=== PATIENT | female | born 1965 | race African-American/Black ===

== ENCOUNTER 2016-10-27 17:02 | Emergency (ER) | payer SELFPAY ==
[~2016-10-27] VITALS: Ht 157.5 cm; Wt 90.0 kg
[~2016-10-27 17:02] MED LIST: 1-ME1LIQ PO; GLUCTAB PO; LISI-360 PO
[2016-10-27 17:03] VITALS: BP 154/99; PULSE 84; RESP 20; TEMP 97.8; O2SAT 97
--- NOTE | 2016-10-27 19:35 | PD ---
HPI Chief Complaint: Cold / Flu Symptoms Time Seen by Provider: 19:33 Travel History International Travel<30 days: No Contact w/Intl Traveler<30days: No Traveled to known affect area: No History of Present Illness HPI 51-year-old black female presents to emergency department with 3-4 day history of subjective fever and chills, myalgias, arthralgias, runny nose, cough, sneezing and general malaise. She denies any ear pain or sore throat. No shortness of breath or wheezing. No nausea vomiting. No abdominal pain or diarrhea. No dysuria or frequency. Lids are moderate. No alleviating factors. History Past Medical Histgory Narrative Medical Diabetes, hypertension Tetanus Vaccination: < 5 Years Hx Cancer: No Past Surgical History Narrative Surgical Hysterectomy Social History Alcohol Use: Yes Tobacco Use: Yes (2 CIGARETTES/WEEK) Allergies-Medications (Allergen,Severity, Reaction): Coded Allergies: Oxycodone (Verified Adverse Reaction, Severe, itching, 12/24/15) Reported Meds & Prescriptions Reported Meds & Active Scripts Active Lisinopril 10 mg (Lisinopril) 10 Mg Tab 1 Tab PO DAILY Amlodipine Besylate 10 mg (Amlodipine Besylate) 10 Mg Tab 1 Tab PO DAILY 30 Days Metformin (Metformin HCl) 500 Mg Tab 500 Mg PO BIDPC Review of Systems Except as stated in HPI: all other systems reviewed are Neg Physical Exam Narrative GENERAL: Well-developed, well-nourished in no acute distress. Nontoxic appearing. HEAD: Normocephalic, atraumatic. EYES: Pupils equal round and reactive. Extraocular motions intact. No scleral icterus. No injection or drainage. ENT: TMs clear without erythema. The external auditory canals clear. Nose: clear . Posterior pharynx is pink and moist. No tonsillar edema or exudate. Uvula midline. Airway patent. NECK: Trachea midline.Supple, nontender, moves head freely. No central bony tenderness or spasm. CARDIOVASCULAR: Regular rate and rhythm without murmurs, gallops, or rubs. RESPIRATORY: Clear to auscultation. Breath sounds equal bilaterally. No wheezes , rales, or rhonchi. GASTROINTESTINAL: Abdomen soft, non-tender, nondistended. No hepato-splenomegaly , or palpable masses. No guarding. EXTREMITIES: No clubbing, cyanosis, or edema. No joint tenderness, effusion, or edema noted. BACK: Nontender without deformity or crepitance. No flank tenderness. Data Data Last Documented VS Vital Signs Date Time Temp Pulse Resp B/P Pulse Ox O2 Delivery O2 Flow Rate FiO2 10/27/16 17:03 97.8 84 20 154/99 97 Room Air MDM Medical Screen Exam Complete: Yes Emergency Medical Condition: No Differential Diagnosis MDM: High Differential diagnoses: Pneumonia, bronchitis, URI, asthma, RAD, legionnaire's disease, SARS, ARDS, influenza, bronchiolitis, RSV,PE,CHF Narrative Course A medical screening exam was performed: At the time of evaluation the presenting medical condition was determined not to be of an emergent nature. The patient was given the option of receiving additional care, but declined. Patient was given options for additional community resources from which to obtain care. The Patient Has Been advised to seek medical attention for their presenting complaint. The patient has been advised to return to the ER at any time if an emergent condition develops. Primary Impression: Encounter for medical screening examination Condition: Stable Hitesh Lyn Oct 27, 2016 19:35
== END 2016-10-27 19:40 | disposition left against medical advice (07) ==
LOC: NEPD 17:02
DX: R50.9 Fever, unspecified (principal); M79.1 Myalgia; M25.50 Pain in unspecified joint; R09.89 Other specified symptoms and signs involving the circulatory and respiratory systems; R05 Cough; R06.7 Sneezing; R53.81 Other malaise; E11.9 Type 2 diabetes mellitus without complications; I10 Essential (primary) hypertension
CPT/HCPCS: 99281